=== PATIENT | female | born 1985 ===

== ENCOUNTER 2018-06-17 10:00 | Emergency (ER) | payer MEDICARE, OTHER ==
[2018-06-17 10:01] VITALS: BMI 17.9
--- NOTE | 2018-06-17 10:25 | ED PDOC ---
HPI: Psych/Substance Abuse Time Seen by Provider: 06/17/18 10:13 Chief Complaint (Nursing): Substance Abuse Chief Complaint (Provider): Substance Abuse History Per: Patient, EMS History/Exam Limitations: no limitations Current Symptoms Are (Timing): Still Present Additional Complaint(s): 32 year old female, with a history of asthma, who is under police custody, presents to the ED after being found with syringes filled with heroine. PMD: none Past Medical History Reviewed: Historical Data, Nursing Documentation, Vital Signs Vital Signs: Last Vital Signs Temp 98 F 06/17/18 10:04 Pulse 74 06/17/18 10:04 Resp 20 06/17/18 10:04 BP 124/78 06/17/18 10:04 Pulse Ox 98 06/17/18 10:04 - Medical History PMH: Anxiety, Asthma, HTN Denies: Diabetes, Hepatitis, HIV, Chronic Kidney Disease, Seizures, Sexually Transmitted Disease - Surgical History Surgical History: No Surg Hx - Family History Family History: States: Unknown Family Hx - Immunization History Hx Tetanus Toxoid Vaccination: No Hx Influenza Vaccination: Yes Hx Pneumococcal Vaccination: No - Home Medications Home Medications: Ambulatory Orders Medication Instructions Recorded Albuterol HFA [Ventolin HFA 90 1 puff IH Q4 #1 inhaler 04/12/18 mcg/actuation (8 g)] QUEtiapine [SEROquel] 100 mg PO HS 05/01/18 Zolpidem [Ambien] 5 mg PO DAILY 05/01/18 - Allergies Allergies/Adverse Reactions: Allergies Allergy/AdvReac Type Severity Reaction Status Date / Time shrimp Allergy Severe ANGIOEDEMA Verified 06/17/18 10:04 buprenorphine [From Suboxone] AdvReac Severe DIARRHEA Verified 06/17/18 10:04 naloxone [From Suboxone] AdvReac Severe DIARRHEA Verified 06/17/18 10:04 Review of Systems ROS Statement: Except As Marked, All Systems Reviewed And Found Negative Physical Exam - Reviewed Nursing Documentation Reviewed: Yes Vital Signs Reviewed: Yes - Physical Exam Appears: Positive for: Non-toxic, No Acute Distress Head Exam: Positive for: ATRAUMATIC, NORMOCEPHALIC Skin: Positive for: Normal Color, Warm, Dry Eye Exam: Positive for: Normal appearance Neck: Positive for: Normal, Painless ROM Cardiovascular/Chest: Positive for: Regular Rate, Rhythm Respiratory: Positive for: Normal Breath Sounds. Negative for: Wheezing, Respiratory Distress Extremity: Positive for: Normal ROM Neurologic/Psych: Positive for: Alert. Negative for: Motor/Sensory Deficits - ECG O2 Sat by Pulse Oximetry: 98 (RA) Pulse Ox Interpretation: Normal Medical Decision Making Medical Decision Making: Initial Plan: --Glucose stat ------- Scribe Attestation: Documented by Kwaku Gibbs acting as a scribe for Aggie Flynn MD. Provider Scribe Attestation: All medical record entries made by the Scribe were at my direction and personally dictated by me. I have reviewed the chart and agree that the record accurately reflects my personal performance of the history, physical exam, medical decision making, and the department course for this patient. I have also personally directed, reviewed, and agree with the discharge instructions and disposition. Disposition - Clinical Impression Clinical Impression: Adjustment disorder, Heroin abuse - Disposition Referrals: [facility] [Outside] Disposition: Discharged/Transfer to Law Enforcement Disposition Time: 11:56 Condition: STABLE Additional Instructions: PATIENT MEDICALLY AND PSYCHIATRICALLY CLEARED FOR INCARCERATION. Instructions: Adjustment Disorder, Opioid Use Disorder Forms: [id number] (Bulgarian)
[2018-06-17 11:38] VITALS: RESP 18
[2018-06-17 12:11] VITALS: BP 100/70; PULSE 72; TEMP 98.6; O2SAT 98
== END 2018-06-17 12:10 | disposition home or self-care (01) ==
LOC: H.ER 10:00
DX: F11.10 Opioid abuse, uncomplicated (principal); F43.22 Adjustment disorder with anxiety; I10 Essential (primary) hypertension; J45.909 Unspecified asthma, uncomplicated

== ENCOUNTER 2018-09-25 11:45 | Emergency (ER) | payer MEDICARE, OTHER ==
[2018-09-25 11:45] VITALS: BMI 17.9
--- NOTE | 2018-09-25 12:45 | ED PDOC ---
HPI: Psych/Substance Abuse Time Seen by Provider: 09/25/18 12:35 Chief Complaint (Nursing): Substance Abuse Chief Complaint (Provider): Substance Use History Per: Patient History/Exam Limitations: no limitations Onset/Duration Of Symptoms: Mins (just prior to arrival) Additional Complaint(s): 32 year old female h/o asthma presents to the ED via EMS for evaluation s/p huffing a dust can at the train station. She states she just waned to get "a buzz." Otherwise, denies suicidal / homicidal ideation, visual / auditory hallucinations, drinking or other drug use today, and any physical complaints. Patient was just discharged from [facility] with diagnosis of pyelonephritis and has her d/c papers with her, but has yet to fill her scripts. LNMP: currently PMD: Shawn Finley Past Medical History Reviewed: Historical Data, Nursing Documentation, Vital Signs - Medical History PMH: Anxiety, Asthma, HTN Denies: Diabetes, Hepatitis, HIV, Chronic Kidney Disease, Seizures, Sexually Transmitted Disease - Surgical History Surgical History: No Surg Hx - Family History Family History: States: Unknown Family Hx - Social History Current smoker - smoking cessation education provided: No Alcohol: None Drugs: Other (heroin abuse) - Immunization History Hx Tetanus Toxoid Vaccination: No Hx Influenza Vaccination: Yes Hx Pneumococcal Vaccination: No - Home Medications Home Medications: Ambulatory Orders Medication Instructions Recorded Albuterol HFA [Ventolin HFA 90 1 puff IH Q4 #1 inhaler 04/12/18 mcg/actuation (8 g)] QUEtiapine [SEROquel] 100 mg PO HS 05/01/18 Zolpidem [Ambien] 5 mg PO DAILY 05/01/18 - Allergies Allergies/Adverse Reactions: Allergies Allergy/AdvReac Type Severity Reaction Status Date / Time shrimp Allergy Severe ANGIOEDEMA Verified 06/17/18 10:04 buprenorphine [From Suboxone] AdvReac Severe DIARRHEA Verified 06/17/18 10:04 naloxone [From Suboxone] AdvReac Severe DIARRHEA Verified 06/17/18 10:04 Review of Systems ROS Statement: Except As Marked, All Systems Reviewed And Found Negative Psych: Negative for: Suicidal ideation (and homicidal ideation), Other (auditory or visual hallucinations) Physical Exam - Reviewed Nursing Documentation Reviewed: Yes Vital Signs Reviewed: Yes - Physical Exam Comments: GENERAL APPEARANCE: Patient is awake, alert, oriented x 3, in no acute distress. Gait steady and unassisted. SKIN: Warm, dry; (-) cyanosis HEAD: (-) scalp swelling, (-) scalp tenderness. EYES: (-) conjunctival pallor, (-) scleral icterus, (-) nystagmus. ENMT: Mucous membranes moist. Airway patent: (-) stridor. NECK: (-) tenderness, (-) stiffness, (-) lymphadenopathy. HEART AND CARDIOVASCULAR: (-) irregularity; (-) murmur, (-) gallop. CHEST AND RESPIRATORY: (-) rales, (-) rhonchi, (-) wheezes; breath sounds equal. ABDOMEN: Soft, (-) distention, (-) tenderness, (-) guarding. NEURO AND PSYCH: Mental status as above. Affect: normal preflight mechanic: Intact. Pupils equal and reactive; EOMI; (-) facial asymmetry; tongue and uvula midline. Strength and DTRs symmetric. Medical Decision Making Medical Decision Making: Time: 1243 Initial Impression: substance use Initial Plan: --Patient is aaox3 and in NAD at this time, and does not indicate any need for emergent intervention. She is requesting to leave, standing outside of her room. Stable for discharge. Discussed diagnosis, treatment, return precautions and f/u with pt who is understanding, in agreement and stable for dc Scribe Attestation: Documented by Nevin Burris, acting as a scribe for Luis Fung PA-C. Provider Scribe Attestation: All medical record entries made by the Scribe were at my direction and personally dictated by me. I have reviewed the chart and agree that the record accurately reflects my personal performance of the history, physical exam, medical decision making, and the department course for this patient. I have also personally directed, reviewed, and agree with the discharge instructions and disposition. Disposition - Clinical Impression Clinical Impression: Substance abuse - Patient ED Disposition Is Patient to be Admitted: No Counseled Patient/Family Regarding: Studies Performed, Diagnosis, Need For Followup - Disposition Referrals: Shawn Finley MD [Staff Provider] - Disposition: Routine/Home Disposition Time: 12:50 Condition: STABLE Additional Instructions: Return to ED for new or worsening symptoms, fever >100.4, difficulty breathing, changes in behavior, changes in vision. Follow up with your primary doctor in 1- 2 days Print Language: ARMENIAN - POA Present On Arrival: None
[2018-09-25 12:51] VITALS: PULSE 83; RESP 18; TEMP 97; O2SAT 99
[2018-09-25 13:01] VITALS: BP 124/77
== END 2018-09-25 12:59 | disposition home or self-care (01) ==
LOC: H.ER 11:45
DX: F19.10 Other psychoactive substance abuse, uncomplicated (principal); F41.9 Anxiety disorder, unspecified; I10 Essential (primary) hypertension